=== PATIENT | male | born 1940 | race Caucasian/White ===

== ENCOUNTER 2024-12-14 11:09 | Outpatient (CLI) | payer OTHER ==
[2024-12-14 12:06] LABS: Hematocrit 29.8 % (38.8-50.0); Hemoglobin 9.6 g/dL (13.5-17.5); Mean Corpuscular Hemoglobin 30.8 pg (27.0-33.0); Mean Corpuscular Volume 95.5 fL (81.2-95.1); Platelet Count 264 10x3/uL (150-450); Red Blood Cell (RBC) Count 3.12 10x6/uL (4.32-5.72); White Blood Cell (WBC) Count 8.42 10x3/uL (3.5-10.5)
[2024-12-14 12:24] LABS: Anion Gap 13 mmol/L (10-20); BUN (Urea Nitrogen) 53 mg/dL (8.4-25.7); Calc. Creatinine Clearance 0 mL/min (70-130); Calcium 8.6 mg/dL (7.8-10.44); Carbon Dioxide 20 mmol/L (23-31); Chloride 112 mmol/L (98-107); Glucose 98 mg/dL (83-110); Potassium 4.9 mmol/L (3.5-5.1); Sodium 140 mmol/L (136-145)
== END 2024-12-14 11:10 | disposition home or self-care (01) ==
LOC: CSHLAB 11:09
PROVIDERS: ATTEND Surgery
DX: Z01.818 Encounter for other preprocedural examination (principal); R13.19 Other dysphagia
CPT/HCPCS: 80048; 85027; 93005; 93010

== ENCOUNTER 2024-12-20 10:19 | Day surgery (SDC) | payer OTHER ==
[2024-12-14 11:42] VITALS: BMI 29.0
[2024-12-20] MEDS ORDERED: PROPOFOL 60 ML ONE (13:09)
[2024-12-20] MEDS ORDERED: Ondansetron PF 4 MG/2 ML Vial ONE (13:41)
[2024-12-20] MEDS ORDERED: PROPOFOL 40 ML ONE (14:17)
== END 2024-12-20 15:18 | disposition home or self-care (01) ==
LOC: CSHSDC 10:19
PROVIDERS: ATTEND Surgery
DX: Z12.11 Encounter for screening for malignant neoplasm of colon (principal); D12.5 Benign neoplasm of sigmoid colon; D12.7 Benign neoplasm of rectosigmoid junction; K57.30 Diverticulosis of large intestine without perforation or abscess without bleeding; K21.00 Gastro-esophageal reflux disease with esophagitis, without bleeding; K29.50 Unspecified chronic gastritis without bleeding; K31.A0 Gastric intestinal metaplasia, unspecified; K44.9 Diaphragmatic hernia without obstruction or gangrene; K29.70 Gastritis, unspecified, without bleeding; I48.91 Unspecified atrial fibrillation; I25.10 Atherosclerotic heart disease of native coronary artery without angina pectoris; I12.9 Hypertensive chronic kidney disease with stage 1 through stage 4 chronic kidney disease, or unspecified chronic kidney disease; N18.9 Chronic kidney disease, unspecified; N17.9 Acute kidney failure, unspecified; E11.22 Type 2 diabetes mellitus with diabetic chronic kidney disease; E11.51 Type 2 diabetes mellitus with diabetic peripheral angiopathy without gangrene; E11.621 Type 2 diabetes mellitus with foot ulcer; E11.40 Type 2 diabetes mellitus with diabetic neuropathy, unspecified; D63.1 Anemia in chronic kidney disease; D53.9 Nutritional anemia, unspecified; H90.3 Sensorineural hearing loss, bilateral; Z86.0100 Personal history of colon polyps, unspecified; Z87.891 Personal history of nicotine dependence; Z90.49 Acquired absence of other specified parts of digestive tract; Z98.890 Other specified postprocedural states; Z79.899 Other long term (current) drug therapy
CPT/HCPCS: 88305; 88342; J2405; J2704